=== PATIENT | male | born 1990 | race Hispanic/Latino ===

== ENCOUNTER 2016-08-14 16:25 | Emergency (ER) | payer SELFPAY ==
--- NOTE | 2016-08-14 16:53 | PDOC ---
Shoulder Injury/Pain HPI - General Chief Complaint: Upper Extremity Problem/Injury Stated Complaint: SHOULDER INJURY Date Seen by Provider: 08/14/16 Time Seen by Provider: 16:49 Source: POSITIVE: Patient Exam Limitations: POSITIVE: No limitations Nurse's Notes Reviewed & Considered: Yes - History of Present Illness Initial Comments: This is a 25-year-old male brought to the emergency room by private vehicle with a history of slipping on the ice and falling directly on his left shoulder , resulting in significant pain to the left shoulder. He did not hit his head, has no neck pain, no chest pain or shortness of breath. He does have some tingling in his left hand, but no noticeable weakness or numbness. No other injuries. Have you received a tetanus shot in the past 10 years?: Unknown Location: Left Shoulder - Patient Home Medications Home Medications: Home Medications NK [No Home Medications Reported] 08/14/16 - Patient Allergies Allergies/Adverse Reactions: Allergies Allergy/AdvReac Type Severity Reaction Status Date / Time No Known Allergies Allergy Verified 08/14/16 16:49 Past Medical History - heen HEENT History: Denies History Respiratory History: Asthma (As a child) Tobacco Use: Current Some Day Smoker Alcohol Use: Occasionally ROS - Limitations ROS Limitations: No Limitations Cardiovascular: DENIES: Chest Pain Respiratory: REPORTS: Denies Resp Symptoms Neurological: REPORTS: Tingling (Left hand). DENIES: Headache, Numbness Shoulder Injury/Pain Exam - General Appearance General Appearance: POSITIVE: Alert, Cooperative, Moderate Distress - Upper Extremity Shoulder: POSITIVE: No Dislocation, Bony Tenderness, AC Drop-Off, Held in Adduction, Held in Internal Rotation, Limited Abduction Upper Extremity: POSITIVE: Uninjured Below Shoulder Skin: POSITIVE: Warm, Dry - HEENT HEENT: POSITIVE: Head Inspection Nml - Respiratory / CVS Respiratory / CVS: POSITIVE: Breath Sounds Normal, No Respiratory Distress, Heart Sounds Normal, Regular Rate/Rhythm Shoulder Pain/Injury Progress - Results Reviewed by me Xrays/CTs/US Reviewed by me: Yes Discussed with Radiologist: No Radiology Findings: Third-degree acromioclavicular separation - Patient's Progress Pain Medication Addressed: POSITIVE: Yes Re-Examine Time:: 17:33 (pain improved somewhat) Status: POSITIVE: Improved MDM / ED Course: Emergency room course: After initial evaluation, the patient was given a tablet of Percocet for pain. X-rays were performed on his shoulder, I reviewed them, and diagnosed him with a third-degree acromioclavicular separation. I discussed these findings with the patient. He is here with a friend, they're both traveling to [place] in the morning. I discussed with the patient the fact that this may need surgery, but it can wait until they arrive in [place] and be evaluated by an orthopedic surgeon there. He should be evaluated within a week. He'll be discharged with prescription for Percocet and Voltaren for pain control. He'll be given a sling for comfort. - Consult Counseled: POSITIVE: Patient, RE: Radiology Results, RE: DX, RE: Need for F/U Patient Care Time - Estimated PCT Patient Care Time (In Minutes): 15 Discharge Clinical Impression: Acromioclavicular (joint) (ligament) sprain Discharge Disposition: Discharged to Home Condition: Good Patient Instructions Given at Discharge: Acromioclavicular Separation (ED) Follow Up With: NONE,NONE [Primary Care Provider] -
[2016-08-14] MEDS ORDERED: oxyCODONE-ACETAMINOPHEN 5-325 TAB PO ONE (16:54)
[2016-08-14 17:10] VITALS: RESP 24; TEMP 97.6
--- NOTE | 2016-08-14 23:08 | DI ---
LEFT SHOULDER, 08/14/2016 4:51 PM: Clinical History: Left shoulder injury. Previous Exam: None at this facility. 3 views are submitted. There is no acute soft tissue, osseous, or joint abnormality. There is a compl ete grade 3 AC joint separation. The visualized portions of the left lung and apex are normal. Reading: Grade 3 AC joint separation. The glenohumeral joint is intact.
== END 2016-08-14 17:50 | disposition home or self-care (01) ==
LOC: ER 16:25
DX: S43.102A Unspecified dislocation of left acromioclavicular joint, initial encounter (principal); R20.2 Paresthesia of skin; Z72.0 Tobacco use; W00.0XXA Fall on same level due to ice and snow, initial encounter
CPT/HCPCS: 73030; 99282